=== PATIENT | male | born 1990 | race Hispanic/Latino ===

== ENCOUNTER 2016-11-14 11:30 | Emergency (ER) | payer BC ==
[2016-11-14] MEDS ORDERED: OPHTHALMIC SALT SOLUTION 120 ML BTTL ONE (11:42)
[2016-11-14 11:47] VITALS: BP 151/87; TEMP 98.5; O2SAT 96
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
[2016-11-14] MEDS: predniSONE 10 MG TAB PO ONE (12:13)
[2016-11-14] MEDS: DEXAMETHASONE INJ 4 MG/ML VIAL IM ONE (12:14)
[2016-11-14] MEDS ORDERED: GENTAMICIN 0.3% OPHTH SOL 1 DROP OPHTH ONE (14:18)
[2016-11-14] MEDS ORDERED: TETRAHYDROZOLINE HCL OPHTH SOL 1 DROP OPHTH ONE (14:18)
== END 2016-11-14 12:26 | disposition home or self-care (01) ==
LOC: ER 11:30
DX: H10.9 Unspecified conjunctivitis (principal); Z87.891 Personal history of nicotine dependence; Y04.8XXA Assault by other bodily force, initial encounter; Y92.9 Unspecified place or not applicable
CPT/HCPCS: J1100; J7512